=== PATIENT | male | born 1980 | race Caucasian/White ===

== ENCOUNTER 2020-12-05 22:14 | Emergency (ER) | payer OTHER ==
[2020-12-05 22:50] LABS: BASOPHIL 1.3 % (0-2); EOSINOPHIL 2.6 % (0-5); HCT 46.1 % (42.0-52.0); HGB 16.6 g/dl (13.2-18.0); LYMPHOCYTE 32.6 % (15-48); MCH 31.5 pg (25.0-31.0); MCV 87.5 fL (78.0-100.0); MONOCYTE 9.7 % (0-12); MPV 10.4 fL (6.0-9.5); NEUTROPHIL 53.4 % (41-80); NRBC 0; PLT 249 K/uL (150-400); RBC 5.27 M/uL (4.70-6.00); RDW 10.9 % (11.5-14.0); WBC 5.5 K/uL (4.0-10.5)
[2020-12-05 23:01] LABS: INR 1.03 (0.9-1.2); PROTHROMBIN TIME 12.9 SECONDS (11.8-13.4); PTT 33.3 SECONDS (24.4-34.7)
[2020-12-05 23:02] LABS: D-DIMER < 0.27 ug/mLFEU (0.00-0.41)
[2020-12-05 23:09] LABS: BILIRUBIN - TOTAL 0.4 mg/dL (0.2-1.0); BUN/CREAT RATIO (CALC) 16.8 RATIO; CREATININE 0.95 mg/dL (0.67-1.17); GLOBULIN (CALCULATION) 3.4 g/dL; POTASSIUM 3.9 mmol/L (3.5-5.1); TOTAL PROTEIN 7.4 g/dL (6.4-8.2)
[2020-12-06 01:57] LABS: AMPHETAMINES NEGATIVE (NEGATIVE); BARBITURATES NEGATIVE (NEGATIVE); ECSTASY (MDMA) NEGATIVE (NEGATIVE); MARIJUANA (THC) NEGATIVE (NEGATIVE); METHADONE NEGATIVE (NEGATIVE); OPIATES NEGATIVE (NEGATIVE); OXYCODONE NEGATIVE (NEGATIVE)
== END 2020-12-06 02:40 | disposition home or self-care (01) ==
LOC: FER 22:14
PROVIDERS: Emergency Medicine Emergency Medical Services
DX: R07.89 Other chest pain (principal); R11.2 Nausea with vomiting, unspecified; Z88.8 Allergy status to other drugs, medicaments and biological substances
CPT/HCPCS: 36415; 71045; 80053; 80305; 83690; 84484; 85025; 85379; 85610; 85730; 93005

== ENCOUNTER 2021-01-30 08:58 | Emergency (ER) | payer OTHER ==
[2021-01-30 09:45] LABS: BILIRUBIN NEGATIVE (NEGATIVE); BLOOD NEGATIVE Ery/uL (NEGATIVE); CLARITY CLEAR (CLEAR); COLOR YELLOW (YELLOW); GLUCOSE (U) NORMAL (NORMAL); LEUKOCYTES NEGATIVE Leu/uL (NEGATIVE); NITRITE NEGATIVE (NEGATIVE); PROTEIN NEGATIVE (NEGATIVE); UROBILINOGEN 0.2 mg/dL (0.2-1.0)
[2021-01-30 09:53] LABS: BASOPHIL 1.2 % (0-2); EOSINOPHIL 0.5 % (0-5); HCT 44.1 % (42.0-52.0); HGB 15.4 g/dl (13.2-18.0); LYMPHOCYTE 24.6 % (15-48); MCH 31.4 pg (25.0-31.0); MCHC 34.9 g/dL (32.0-36.0); MCV 89.8 fL (78.0-100.0); MONOCYTE 9.5 % (0-12); MPV 9.9 fL (6.0-9.5); NEUTROPHIL 63.7 % (41-80); NRBC 0; PLT 228 K/uL (150-400); RBC 4.91 M/uL (4.70-6.00); WBC 4.1 K/uL (4.0-10.5)
[2021-01-30 10:21] LABS: BUN/CREAT RATIO (CALC) 12.8 RATIO; CREATININE 0.94 mg/dL (0.67-1.17); POTASSIUM 4.6 mmol/L (3.5-5.1)
[2021-01-30] MEDS ORDERED: NORCO 5-325 TA1 EACH PO (10:37)
[2021-01-30] MEDS ORDERED: FLOMAX0.4 MG PO (10:37)
[2021-01-30] MEDS ORDERED: CIPRO500 MG PO (10:51)
[2021-01-31 22:09] LABS: CHLAMYDIA TRACHOMATIS, NAA Negative (Negative); NEISSERIA GONORRHOEAE, NAA Negative (Negative)
== END 2021-01-30 11:13 | disposition home or self-care (01) ==
LOC: FER 08:58
PROVIDERS: Emergency Medicine
DX: N20.2 Calculus of kidney with calculus of ureter (principal); N41.9 Inflammatory disease of prostate, unspecified; N40.0 Benign prostatic hyperplasia without lower urinary tract symptoms; Z88.8 Allergy status to other drugs, medicaments and biological substances
CPT/HCPCS: 36415; 80048; 81003; 85025; 87491; 87591